=== PATIENT | female | born 1955 | race Caucasian/White ===

== ENCOUNTER → 2020-03-23 | Outpatient (CLI) | payer MEDICARE, OTHER ==
[~2020-03-23] MED LIST: B-12500 MC1 PO; CHLO25B PO; ESOM20 PO; FOSI10 PO; LEVO-T100 MCG PO; MELA3 PO; POTCHL10ER PO; PRAV20 PO
== END | disposition home or self-care (01) ==
LOC: LAB SHORT 13:11 → LAB EV 13:11
DX: N39.0 Urinary tract infection, site not specified (principal)
CPT/HCPCS: 87077; 87086; 87186